=== PATIENT | female | born 1960 | race African-American/Black ===

== ENCOUNTER 2018-12-15 09:45 | Emergency (ER) | payer MEDICARE, MEDICAID ==
[~2018-12-15] VITALS: Ht 167.6 cm; Wt 68.0 kg
[2018-12-15 09:47] VITALS: BP 147/82
[2018-12-15] MEDS ORDERED: ALBU6.7H9 IH (09:50)
[2018-12-15] MEDS ORDERED: TETANUS, DIPHTHERIA, PERTUSSIS VAC/PF 0.5ML (>7YR OLD) IM ONE (11:15)
[2018-12-15] MEDS ORDERED: LIDOCAINE 1%/EPI 1:100,000 10 ML VIAL IJ ONE (11:15)
[2018-12-15] MEDS ORDERED: BACITRACIN ZINC OINT UDPKT TOP ONE (11:15)
[2018-12-15] MEDS ORDERED: LIDOCAINE HCL/EPINEPHRINE 1%-EPI 1:100,000 20 ML VIAL INFIL NR (11:30)
== END 2018-12-15 12:00 | disposition home or self-care (01) ==
LOC: ER 09:45
DX: S01.511A Laceration without foreign body of lip, initial encounter (principal); J45.909 Unspecified asthma, uncomplicated; F31.9 Bipolar disorder, unspecified; F17.200 Nicotine dependence, unspecified, uncomplicated; Z88.5 Allergy status to narcotic agent; Z79.899 Other long term (current) drug therapy; W18.39XA Other fall on same level, initial encounter; Y93.01 Activity, walking, marching and hiking; Y92.89 Other specified places as the place of occurrence of the external cause; Y99.8 Other external cause status
CPT/HCPCS: 12011; 90471; 90715; 99283; J3490

== ENCOUNTER 2024-08-17 23:34 | Emergency (ER) | payer OTHER, MEDICAID ==
[~2024-08-17] VITALS: Ht 172.7 cm; Wt 50.0 kg
[~2024-08-17 23:34] MED LIST: ALBU6.7H3 IH
[2024-08-17 23:44] VITALS: TEMP 36.8; O2SAT 98
[2024-08-18 00:45] VITALS: BP 136/84; PULSE 106; RESP 16
[2024-08-18] MEDS: KETOROLAC 15MG/ML VIAL IM ONE (00:45)
[2024-08-18] MEDS ORDERED: NAPR-681 MT (02:00)
== END 2024-08-18 02:37 | disposition home or self-care (01) ==
LOC: ER 23:34
DX: M25.511 Pain in right shoulder (principal); Z88.5 Allergy status to narcotic agent; W01.0XXA Fall on same level from slipping, tripping and stumbling without subsequent striking against object, initial encounter; Y93.89 Activity, other specified; Y92.89 Other specified places as the place of occurrence of the external cause; Y99.8 Other external cause status
CPT/HCPCS: 99284; 73000; 73030; 96372; J1885